=== PATIENT | male | born 2000 | race African-American/Black ===

== ENCOUNTER 2023-11-26 12:06 | Outpatient (CLI) | payer OTHER ==
[2023-11-26 13:30] VITALS: BP 128/64; PULSE 68; RESP 20; TEMP 97.4; O2SAT 98
== END 2023-11-26 15:42 | disposition home or self-care (01) ==
LOC: CSU 12:06 → EDSTATUS 01-20 16:45
PROVIDERS: ATTEND Nurse Practitioner Psychiatric/Mental Health
DX: F33.9 Major depressive disorder, recurrent, unspecified (principal); F39 Unspecified mood [affective] disorder
CPT/HCPCS: 90839; 90840